=== PATIENT | male | born 1940 | race Caucasian/White ===

== ENCOUNTER 2017-09-30 16:13 | Inpatient (IN) | payer OTHER ==
[~2017-09-30] VITALS: Ht 180.3 cm; Wt 94.2 kg
[2017-09-30 17:04] LABS: BASOPHIL (%) 0.5 % (0-1); BASOPHIL COUNT 0.1 K/uL (0-0.1); EOSINOPHIL (%) 0.7 % (0-5); EOSINOPHIL COUNT 0.1 K/uL (0-0.3); HEMATOCRIT 41.1 % (38.0-50.0); HEMOGLOBIN 14.5 G/DL (12.5-16.6); IMMATURE GRANULOCYTE (%) 0.5 % (0.0-0.7); LYMPHOCYTE (%) 11.9 % (15-42); LYMPHOCYTE COUNT 1.7 K/uL (1.0-2.8); MCH 33.6 PG (29.0-34.0); MCHC 35.3 G/DL (30.0-36.0); MCV 95.4 FL (86-99); MONOCYTE (%) 6.4 % (3-12); MONOCYTE COUNT 0.9 K/uL (0-0.8); NEUTROPHIL COUNT 11.3 K/uL (1.8-6.4); PLATELET COUNT 230 K/uL (156-360); RBC DIS.WIDTH-CV 12.3 % (11.8-14.6); RBC DIS.WIDTH-SD 42.7 % (39-53); RED BLOOD COUNT 4.31 M/uL (4.00-5.50); WHITE BLOOD COUNT 14.1 K/uL (4.1-10.2)
[2017-09-30 17:10] LABS: INTER. NORMALIZED RATIO 1.2
[2017-09-30 17:14] LABS: AMYLASE 69 IU/L (1-118); CHLORIDE 103 mEq/L (99-109)
[2017-09-30 17:15] LABS: POTASSIUM 4.3 mEq/L (3.7-5.4); SODIUM 137 mEq/L (136-147)
[2017-09-30 17:16] LABS: GLUCOSE 122 mg/dL (70-99)
[2017-09-30 17:19] LABS: SERUM ETHYL ALCOHOL < 10 mg/dL
[2017-09-30 17:20] LABS: CREATININE 2.2 mg/dL (0.6-1.3); GFR ESTIMATE (CALCULATED) 31 mL/min/ (58.99-99999)
[2017-09-30 17:21] LABS: UREA NITROGEN (BUN) 50 mg/dL (9-23)
[2017-09-30 17:23] LABS: LIPASE 44 U/L (1.0-51.0)
[2017-09-30 17:25] LABS: TROP-I INTERPRETATION NEGATIVE; TROPONIN-I < 0.01 ng/mL (0.0-0.30)
[2017-09-30] MEDS ORDERED: ALLOPURINOL300 MG PO (18:14)
[2017-09-30] MEDS ORDERED: LOSARTAN-HCTZ1 EAC1 PO (18:15)
[2017-09-30] MEDS ORDERED: ASPIR 8181 M1 PO (18:15)
[2017-09-30 19:50] LABS: TOTAL PROTEIN 8.4 g/dL (6.4-8.3)
[2017-09-30 19:52] LABS: TOTAL BILIRUBIN 0.8 mg/dL (0.0-1.0)
[2017-09-30 19:53] LABS: ALKALINE PHOSPHATASE 128 IU/L (3-129)
[2017-09-30 19:56] LABS: ALT (GPT) 19 IU/L (3-49); AST (GOT) 26 IU/L (2-34)
[2017-09-30 21:05] VITALS: BP 104/57
[2017-09-30 21:20] VITALS: BP 104/57
[2017-10-01 04:21] VITALS: BP 115/56
[2017-10-01 06:19] LABS: BASOPHIL (%) 0.7 % (0-1); BASOPHIL COUNT 0.1 K/uL (0-0.1); EOSINOPHIL (%) 1.9 % (0-5); EOSINOPHIL COUNT 0.2 K/uL (0-0.3); HEMATOCRIT 37.1 % (38.0-50.0); IMMATURE GRANULOCYTE (%) 0.6 % (0.0-0.7); LYMPHOCYTE (%) 16.3 % (15-42); LYMPHOCYTE COUNT 1.8 K/uL (1.0-2.8); MCH 33.6 PG (29.0-34.0); MCHC 33.7 G/DL (30.0-36.0); MONOCYTE (%) 8.1 % (3-12); MONOCYTE COUNT 0.9 K/uL (0-0.8); NEUTROPHIL (%) 72.4 % (45-76); NEUTROPHIL COUNT 8.2 K/uL (1.8-6.4); PLATELET COUNT 164 K/uL (156-360); RBC DIS.WIDTH-CV 12.6 % (11.8-14.6); RBC DIS.WIDTH-SD 45.5 % (39-53); RED BLOOD COUNT 3.72 M/uL (4.00-5.50); WHITE BLOOD COUNT 11.3 K/uL (4.1-10.2)
[2017-10-01 06:21] LABS: HEMOGLOBIN 12.5 G/DL (12.5-16.6); MCV 99.7 FL (86-99)
[2017-10-01 06:35] LABS: ALBUMIN 3.3 G/DL (3.2-4.8); ALKALINE PHOSPHATASE 102 IU/L (3-129); ALT (GPT) 16 IU/L (3-49); AST (GOT) 20 IU/L (2-34); CHLORIDE 105 MEQ/L (99-109); CREATININE 1.8 MG/DL (0.6-1.3); GFR ESTIMATE (CALCULATED) 39 mL/min/ (58.99-99999); GLUCOSE 99 mg/dL (70-99); SODIUM 137 MEQ/L (136-147); TOTAL BILIRUBIN 0.6 MG/DL (0.0-1.0); TOTAL PROTEIN 6.6 G/DL (6.4-8.3); UREA NITROGEN (BUN) 45 mg/dL (9-23)
[2017-10-01 10:24] LABS: BILIRUBIN NEGATIVE; BLOOD NEGATIVE; COLOR YELLOW ((YELLOW)); GLUCOSE (STRIP) NEGATIVE; KETONES NEGATIVE; LEUKOCYTES NEGATIVE; NITRITE NEGATIVE; PROTEIN (STRIP) NEGATIVE; SPECIFIC GRAVITY 1.031 (1.000-1.030); UROBILINOGEN 0.2 MG/DL (0.2-1.0)
[2017-10-01 10:33] LABS: APPEARANCE CLEAR ((CLEAR))
[2017-10-01 10:38] VITALS: BP 137/65
[2017-10-01 15:58] VITALS: BP 125/65
[2017-10-01 20:08] VITALS: BP 123/68
[2017-10-02] VITALS (7 sets, daily range): BP systolic 110–127; BP diastolic 56–77
[2017-10-03 04:19] VITALS: BP 127/62
[2017-10-03 05:49] LABS: BASOPHIL (%) 0.6 % (0-1); BASOPHIL COUNT 0.1 K/uL (0-0.1); EOSINOPHIL (%) 2.4 % (0-5); EOSINOPHIL COUNT 0.3 K/uL (0-0.3); HEMATOCRIT 31.8 % (38.0-50.0); HEMOGLOBIN 11.1 G/DL (12.5-16.6); IMMATURE GRANULOCYTE (%) 0.3 % (0.0-0.7); LYMPHOCYTE (%) 11.4 % (15-42); LYMPHOCYTE COUNT 1.5 K/uL (1.0-2.8); MCH 33.7 PG (29.0-34.0); MCHC 34.9 G/DL (30.0-36.0); MCV 96.7 FL (86-99); MONOCYTE (%) 6.8 % (3-12); MONOCYTE COUNT 0.9 K/uL (0-0.8); NEUTROPHIL (%) 78.5 % (45-76); PLATELET COUNT 171 K/uL (156-360); RBC DIS.WIDTH-CV 12.3 % (11.8-14.6); RBC DIS.WIDTH-SD 43.5 % (39-53); RED BLOOD COUNT 3.29 M/uL (4.00-5.50); WHITE BLOOD COUNT 12.7 K/uL (4.1-10.2)
[2017-10-03 06:26] LABS: ALBUMIN 3.2 G/DL (3.2-4.8); ALKALINE PHOSPHATASE 83 IU/L (3-129); ALT (GPT) 18 IU/L (3-49); AST (GOT) 20 IU/L (2-34); CHLORIDE 105 MEQ/L (99-109); CREATININE 1.4 MG/DL (0.6-1.3); GFR ESTIMATE (CALCULATED) 53 mL/min/ (58.99-99999); GLUCOSE 99 mg/dL (70-99); SODIUM 138 MEQ/L (136-147); TOTAL BILIRUBIN 0.7 MG/DL (0.0-1.0); TOTAL PROTEIN 6.6 G/DL (6.4-8.3); UREA NITROGEN (BUN) 24 mg/dL (9-23)
[2017-10-03 07:55] VITALS: BP 121/58
[2017-10-03 12:09] VITALS: BP 116/63
[2017-10-03 15:45] VITALS: BP 122/60
[2017-10-03 19:20] VITALS: BP 117/70
[2017-10-03 23:10] VITALS: BP 133/63
[2017-10-04 04:11] VITALS: BP 117/68
[2017-10-04 07:44] VITALS: BP 119/69
[2017-10-04 11:19] VITALS: BP 115/63
[2017-10-04] MEDS ORDERED: ATROPINE SU0.1 MG/ML IV (13:21)
[2017-10-04] MEDS ORDERED: SUCRALFATE1 GM PO (13:24)
[2017-10-04] MEDS ORDERED: BENTYL20 MG PO (13:25)
[2017-10-04] MEDS ORDERED: fentaNYL Citrate IV (13:25)
== END 2017-10-04 16:50 | disposition home or self-care (01) | DRG 375 ==
LOC: EME 16:13 → CATH 18:24 → 4EAST 18:26 → 2SOUTH 18:26 → ENRESERV 18:33 → 4EAST 20:57
PROVIDERS: Emergency Medicine; Family Medicine
DX: C15.5 Malignant neoplasm of lower third of esophagus (principal); C61 Malignant neoplasm of prostate; N17.9 Acute kidney failure, unspecified; E86.0 Dehydration; Q24.5 Malformation of coronary vessels; I12.9 Hypertensive chronic kidney disease with stage 1 through stage 4 chronic kidney disease, or unspecified chronic kidney disease; N18.9 Chronic kidney disease, unspecified; I25.10 Atherosclerotic heart disease of native coronary artery without angina pectoris; K29.70 Gastritis, unspecified, without bleeding; K44.9 Diaphragmatic hernia without obstruction or gangrene; R59.1 Generalized enlarged lymph nodes; R63.4 Abnormal weight loss; M47.9 Spondylosis, unspecified; I73.9 Peripheral vascular disease, unspecified; D72.829 Elevated white blood cell count, unspecified; N40.0 Benign prostatic hyperplasia without lower urinary tract symptoms; E78.5 Hyperlipidemia, unspecified; E66.9 Obesity, unspecified; M19.90 Unspecified osteoarthritis, unspecified site; M10.9 Gout, unspecified; Z80.8 Family history of malignant neoplasm of other organs or systems; Z82.3 Family history of stroke; Z82.49 Family history of ischemic heart disease and other diseases of the circulatory system; Z83.3 Family history of diabetes mellitus; Z87.891 Personal history of nicotine dependence; Z68.28 Body mass index [BMI] 28.0-28.9, adult
CPT/HCPCS: 71045; 71250; 74176; 76705; 80048; 80053; 81003; 82150; 83690; 84484; 85025; 85610; 85730; 86850; 86900; 86901; 87086; 88305; 88342 TC; 93005; 94799; 99281; 99285; C1769; C1887; C9113; G0103; G0480; J0295; J1644; J2250; J3010; J7030; J7040; J7050

== ENCOUNTER 2017-10-18 14:25 | Day surgery (SDC) | payer OTHER ==
[~2017-10-18] VITALS: Ht 180.3 cm; Wt 88.0 kg
[~2017-10-18 14:25] MED LIST: ALLOPURINOL300 MG PO; ASPIR 8181 M1 PO; ATROPINE SU0.1 MG/ML IV; BENTYL20 MG PO; DURAGESIC12 MCG TD; LOSARTAN-HCTZ1 EAC1 PO; SUCRALFATE1 GM PO; fentaNYL Citrate IV
[2017-10-18 15:15] VITALS: BP 78/50
[2017-10-18 19:10] VITALS: BP 108/64
[2017-10-18 19:57] VITALS: BP 115/63
== END 2017-10-18 20:15 | disposition home or self-care (01) ==
LOC: SDC 14:25
DX: Z45.2 Encounter for adjustment and management of vascular access device (principal); I87.8 Other specified disorders of veins; C15.9 Malignant neoplasm of esophagus, unspecified; I10 Essential (primary) hypertension; Z79.82 Long term (current) use of aspirin
CPT/HCPCS: 71045; C1751; J0690; J3010